=== PATIENT | male | born 1970 | race Caucasian/White ===

== ENCOUNTER 2019-08-08 13:24 | Emergency (ER) | payer MEDICAID ==
[~2019-08-08] VITALS: Ht 185.4 cm; Wt 108.9 kg
[2019-08-08 13:44] VITALS: BP_SYST 117
--- NOTE | 2019-08-08 13:51 | NUR ---
Placed in room 1 . Placed on monitoring tech, blood pressure machine and pulse oximeter. To gown for exam. Side rails up. Report given to Gay ROBLES
--- NOTE | 2019-08-08 13:52 | NUR ---
Patient presented to ER C/O groin pain. Patient A&Ox4, ambulatory, to ER, swelling to scrotum, pulses palapable bilat, pain 04/22, N/V/D. Patient states swelling has been present x3 years, but worse since June 2019.
--- NOTE | 2019-08-08 14:00 | NUR ---
ER at bedside examining patient.
[2019-08-08 15:12] LABS: BASOPHILS % (AUTO) 0.6 % (0.0-2.0); EOSINOPHILS # (AUTO) 0.1 K/uL (0.0-0.4); EOSINOPHILS % (AUTO) 2.4 % (0.0-4.0); HEMATOCRIT 45.3 % (36-54); HEMOGLOBIN 14.6 g/dL (14.0-18.0); LYMPHOCYTES # (AUTO) 1.3 K/uL (1.0-5.5); LYMPHOCYTES % (AUTO) 24.8 % (20.5-51.5); MEAN CORPUSCULAR HEMOGLOBIN 29 pg (27-31); MEAN CORPUSCULAR HGB CONC 32 % (32-36); MEAN CORPUSCULAR VOLUME 88 fL (79.0-98.0); MONOCYTES # (AUTO) 0.8 K/uL (0.0-1.0); MONOCYTES % (AUTO) 14.9 % (1.7-9.3); NEUTROPHILS # (AUTO) 3.1 K/uL (1.8-7.7); NEUTROPHILS % (AUTO) 57.3 % (40.0-70.0); PLATELET COUNT (AUTO) 248 K/uL (130-430); RED BLOOD CELL COUNT(AUTO) 5.13 MIL/uL (4.2-6.2); RED CELL DISTRIBUTION WIDTH 18.9 % (9.0-15.0); WHITE BLOOD COUNT (AUTO) 5.3 K/uL (4.8-10.8)
[2019-08-08] MEDS ORDERED: HYDROcodone/ACETAMIN 10-325 MG TAB PO ONE (15:15)
[2019-08-08] MEDS ORDERED: IBUPROFEN 800 MG TABLET PO ONE (15:15)
[2019-08-08 15:21] LABS: INR 1.1 (0.80-1.20); PROTHROMBIN TIME 11.5 SECS (9.5-12.5)
--- NOTE | 2019-08-08 15:30 | NUR ---
Patient visitor Della Hernandez at bedside states patient is suicidal if discharged home. Clarified with patient after Della Hernandez went to waiting room: Patient states "I am not suicidal, at home I said the pain was so bad that I wanted to ."
--- NOTE | 2019-08-08 15:30 | NUR ---
Ivan sifuentesgladys in EDM - 08/08/19 at 1541 by SDEDDW Patient visitor Della Hernandez at bedside states patient is suicidal if discharged home. Clarified with patient after Della Hernandez went to waiting room: Patient states "I am not suicidal".
[2019-08-08 15:31] LABS: CALCIUM 8.2 mg/dL (8.4-11.0); CREATININE 1.32 mg/dL (0.55-1.30); POTASSIUM 4.7 mmol/L (3.5-5.1)
--- NOTE | 2019-08-08 15:32 | NUR ---
FAMILY MEMBER SISTER IS VERY LOUD AND THREATENING TO STAFF, ASKED TO GO TO WAITING ROOM WHILE SHE SPOKE LOUDLY ON SPEAKER PHONE. SISTER BECAME IRATE AND AGGRESSIVE. SISTER THEN LEFT THE HOSPITAL.
[2019-08-08 15:36] LABS: ALBUMIN 2.5 g/dL (3.4-4.8); TOTAL BILIRUBIN 1.7 mg/dL (0.0-1.0)
[2019-08-08] MEDS ORDERED: FUROSEMIDE 40 MG/4 ML VIAL IVP ONE (15:45)
--- NOTE | 2019-08-08 17:40 | NUR ---
Patient given written and verbal discharge instructions and verbalizes understanding. ER MD discussed with patient the results and treatment provided. Patient in stable condition. ID arm band removed. Rx of Xanax & norco given. Patient educated on pain management and to follow up with PMD. Pain Scale 2/10 toleranle for patient. Opportunity for questions provided and answered. Medication side effect fact sheet provided.
[2019-08-08 17:41] VITALS: BP_SYST 116
== END 2019-08-08 17:40 | disposition home or self-care (01) ==
LOC: SED 13:24
DX: N50.89 Other specified disorders of the male genital organs (principal); R60.1 Generalized edema; K40.90 Unilateral inguinal hernia, without obstruction or gangrene, not specified as recurrent; I50.9 Heart failure, unspecified; E11.9 Type 2 diabetes mellitus without complications
CPT/HCPCS: 36415; 74176; 80053; 82150; 83605; 83690; 85025; 85610; 85730; 96374; 99284; J1940